=== PATIENT | female | born 1970 | race American Indian/Alaskan Native ===

== ENCOUNTER 2019-09-11 05:53 | Day surgery (SDC) | payer OTHER ==
[~2019-09-11 05:53] MED LIST: ENOXAPARIN 40 MG/0.4 ML INJ SUB-Q SCH; LACTATED RINGERS 1,000 ML IV SCH; ceFAZolin/Water 2 GM/20 ML 2 GM/20 ML SYRINGE IV NR
[2019-09-11] MEDS ORDERED: MIDAZOLAM 2 MG/2 ML INJ IV NR (06:00)
[2019-09-11] MEDS ORDERED: SCOPOLAMINE TRANSDERMAL PATCH 72 HR TD NR (06:00)
[2019-09-11] MEDS ORDERED: CELECOXIB 200 MG CAP PO NR (06:00)
[2019-09-11] MEDS ORDERED: GABAPENTIN 300 MG CAP PO NR (06:00)
[2019-09-11] MEDS ORDERED: SODIUM CHLORIDE 0.9% 1000 ML 1,000 ML, EPINEPHrine/PF 1:1,000 1 MG, LIDOCAINE 1% 20 mL ... IR SCH (07:00)
[2019-09-11] MEDS ORDERED: LIDOCAINE 1%/EPINEPHRINE 1:100,000 VIAL (20 ML) INFILTRATI ONE ×2 (07:24→09:19)
--- NOTE | 2019-09-11 07:31 | Anesthesia Consultation ---
Anesthesia Consult and Med Hx Date of service: 09/11/19 - Airway Anesthetic Teeth Evaluation: Good ROM Head & Neck: Adequate Mental/Hyoid Distance: Adequate Mallampati Class: Class III Intubation Access Assessment: Possibly Difficult - Pulmonary Exam CTA: Yes - Cardiac Exam Cardiac Exam: RRR - Pre-Operative Health Status ASA Pre-Surgery Classification: ASA1 Proposed Anesthetic Plan: General - Pulmonary Hx Smoking: No Hx Respiratory Symptoms: No - Cardiovascular System Hx Hypertension: No Hx Heart Attack/AMI: No - Central Nervous System CVA: No - Gastrointestinal Hx Gastroesophageal Reflux Disease: No - Endocrine Hx Renal Disease: No Hx Liver Disease: No Hx Insulin Dependent Diabetes: No Hx Non-Insulin Dependent Diabetes: No Hx Thyroid Disease: No - Hematic Hx Anemia: No - Other Systems Hx Obesity: Yes (BMI 42) - Additional Comments Anesthesia Medical History Comments: No hx anesthetic complications.
--- NOTE | 2019-09-11 07:31 | Anesthesia Day of Surgery ---
Anesthesia Day of Surgery - Day of Surgery Patient Examined: Yes Patient H&P Reviewed: Yes Patient is NPO: Yes
[2019-09-11] MEDS ORDERED: HYDROmorphone 1 MG/1 ML INJ IV PRN (07:32)
[2019-09-11] MEDS ORDERED: ROCURONIUM 50 MG/5 ML INJ IV ONE ×2 (07:38→12:28)
[2019-09-11] MEDS ORDERED: LIDOCAINE MPF (2%) 20 MG/1 ML VIAL 5 ML ONE (07:38)
[2019-09-11] MEDS ORDERED: GLYCOPYRROLATE 0.4 MG/2 ML INJ ONE (07:38)
[2019-09-11] MEDS ORDERED: fentaNYL 250 MCG/5 ML INJ ONE (07:38)
[2019-09-11] MEDS ORDERED: PROPOFOL 200 MG/20 ML VIAL IV ONE (07:38)
[2019-09-11] MEDS ORDERED: NEOSTIGMINE 10MG/10 ML INJ MDV ONE (07:38)
[2019-09-11] MEDS ORDERED: ONDANSETRON 4 MG/2 ML INJ ONE (07:38)
[2019-09-11] MEDS ORDERED: dexAMETHasone 20 MG/5 ML VIAL ONE (07:38)
[2019-09-11] MEDS ORDERED: PHENYLEPHRINE/NS 1,000 MCG/10 ML SYRINGE (OR USE) IV ONE (07:38)
[2019-09-11] MEDS ORDERED: SODIUM CHLORIDE 0.9% IRR 1,500 ML BOTTLE IR ONE (09:19)
[2019-09-11] MEDS ORDERED: PHENYLEPHRINE 10 MG/1 ML INJ SDV ONE (12:28)
[2019-09-11] MEDS ORDERED: HYDROmorphone 1 MG/1 ML INJ ONE (13:59)
--- NOTE | 2019-09-11 14:40 | Operative Report ---
Operative Report Operative Report: Plastic Surgery Operative Note Preoperative Diagnosis: Unacceptable Cosmetic appearance Postoperative Diagnosis: Same Procedure: Full lipoabdominoplasty with liposuction of the upper and lower abdomen, anterior waistline. Anesthesia: General endotracheal Surgeon: Maria Teresa Cabrales MD Store Specialist: Magali Alexander CFA EBL: 100cc Indications: This patient is a 49 year old AAF who presented with complaint of abdominal pannus, adiposity of the central abdomen and "muffin top" that she has had for years and not been able to lose despite diet and exercise. She desires a flatter midsection and waistline definition. We discussed the benefits as well as the risks of lipoabdominoplasty, including but not limited to hematoma, seroma, infection, bleeding, scarring, keloids, pulmonary embolus and the need for further surgery. The patient understood and accepted these risks and decided to move forward with surgery. Informed consent was obtained. Procedure: After review of pertinent history and phsyical exam findings the patient was brought into the operating room and placed supine on the OR table. After induction of adequtae general endotracheal anesthesia, the abdomen was prepped and draped in the usual sterile surgical fashion. Using an 11 blade, cannula entry incisions were made in the lower abdomen, and 5 L of tumescent solution was infiltrated into the tissues of the abdomen and flanks. Power assisted liposcution was performed until aspirate was blood-tinged, for a total of 6.1 L, 3.9 L of which was pure fat. We then began the tummy tuck portion of the procedure, creating a lower abdominal incision using a 10 blade, which was carried through subcutaneous tissue using the electrocautery. This dissection along the rectus fascia was carried cephalad to the xiphoid process, after which point rectus diastasis (measuring 5 cm at its widest) was repaired using 0 PDO Quill suture. Of note, the patient has significant visceral fat which made it impossible to close the entire width of the diastasis at its widest point. The bed was then placed in a beach chair position and the lower abdominal pannus was marked and sharply excised. 2 19 Fr Kenrick drains were placed and secured with a 2-0 Nylon suture and we began closure of her incisions in 3 layers beginning with a PDO Quill suture to approximate David's fascia follwed by 3-0 Monoderm Quill in 2 layers. The umbilicus was delivered through the abdominal skin flap and secured with 2-0 Monocryl and 4-0 subcuticular sutures. All incisions were then sealed with Dermabond. ABD's were then placed on the abdomen, followed by a compression garment. Patient was then awakened from general anesthesia. During emergence, the patient coughed and sat up abruptly. An audible popping sound was heard and this was suspected to be her midline plication suture. She was monitored for several minutes for the development of any swelling suggestive of a hematoma or additional bleeding through her drains which was not observed. An abdominal binder was finally placed over her garment and the patient was transferred to PACU in stable condition. Patient tolerated the procedure well. All sponge, needle and instrument counts were correct at the end of the case.
[2019-09-11 17:57] VITALS: BP 124/65
--- NOTE | 2019-09-11 20:02 | Post Anesthesia Evaluation ---
- Post Anesthesia Evaluation Patient Participated: Yes Airway Patent: Yes Stable Respiratory Function: Yes Nausea/Vomiting: No Temp > 96.8F: Yes Pain Manageable: Yes Adequeate Hydration: Yes Anesthesia Complications: No
== END 2019-09-11 05:54 | disposition home or self-care (01) ==
LOC: OR 05:53
PROVIDERS: ATTEND Plastic Surgery
DX: Z41.1 Encounter for cosmetic surgery (principal); E66.9 Obesity, unspecified; Z79.899 Other long term (current) drug therapy; Z68.41 Body mass index [BMI] 40.0-44.9, adult; Z90.710 Acquired absence of both cervix and uterus; Z86.2 Personal history of diseases of the blood and blood-forming organs and certain disorders involving the immune mechanism; Z98.890 Other specified postprocedural states
CPT/HCPCS: 15830; 15847; J0171; J0690; J1100; J1170; J1650; J2250; J2370; J2405; J2704; J2710; J3010; J7030; J7120